=== PATIENT | female | born 1990 | race Caucasian/White ===

== ENCOUNTER 2019-05-28 20:07 | Inpatient (IN) | payer MEDICAID ==
[2019-05-29] MEDS ORDERED: Water For Irrigation,Sterile 1,000 ML Container IRR PRN (02:45)
[2019-05-29] MEDS ORDERED: Methylergonovine 0.2 MG/1 ML Amp IM PRN (02:45)
[2019-05-29] MEDS ORDERED: Oxytocin/0.9 % Sodium Chloride 30 UNIT/500 ML BAG IV SCH ×2 (02:45→09:15)
[2019-05-29] MEDS ORDERED: Butorphanol 1 MG/ML SDV IVPUSH PRN (02:45)
[2019-05-29] MEDS ORDERED: Ondansetron 4 MG/2 ML SDV IVPUSH PRN (02:45)
[2019-05-29] MEDS ORDERED: Sodium Chloride 0.9% 10 ML Syringe FLUSH PRN (02:45)
[2019-05-29] MEDS ORDERED: Sodium Chloride 0.9% 2.5 ML Syringe FLUSH PRN (02:45)
[2019-05-29] MEDS ORDERED: Misoprostol 200 MCG Tab PO PRN (02:45)
[2019-05-29] MEDS ORDERED: Lidocaine 1% 50 ML MDV INJECT PRN (02:45)
[2019-05-29] MEDS ORDERED: Carboprost Tromethamine 250 MCG/1 ML Amp IM PRN (02:45)
[2019-05-29] MEDS ORDERED: Nalbuphine 10 MG/1 ML Vial IVPUSH PRN (02:45)
[2019-05-29] MEDS ORDERED: Sodium Chloride 0.9% 10 ML SDV IV PRN (02:45)
[2019-05-29] MEDS ORDERED: Tranexamic Acid 1,000 MG in Sodium Chloride 0.9% 100 ML IV PRN ×2 (02:45→14:08)
[2019-05-29] MEDS ORDERED: Terbutaline 1 MG/ML SDV SUBCUT PRN (09:06)
[2019-05-29] MEDS ORDERED: fentaNYL 100 MCG/2 ML SDV ONE ×2 (09:35→11:54)
[2019-05-29] MEDS ORDERED: Ropivacaine HCl/PF 100 ML ONE (09:35)
[2019-05-29] MEDS: Lactated Ringers 1,000 ML IV SCH ×2 (09:39→10:13)
[2019-05-29] MEDS ORDERED: Acetaminophen 1,000 MG in Premix Bag 1 BAG IV ONE (10:08)
--- NOTE | 2019-05-29 10:13 | PCM.PREANE ---
Preanesthetic Assessment - Anesthesia/Transfusion/Family Hx Anesthesia History: Prior Anesthesia Without Reaction Family History of Anesthesia Reaction: No Transfusion History: No Prior Transfusion(s) Intubation History: Unknown - Review of Systems Neurological: Headache, Other - Physical Assessment NPO Status Date: 05/29/19 Vital Signs: Last Vital Signs Temp 36.8 C 05/29/19 08:02 Pulse Resp 20 05/29/19 08:02 BP Pulse Ox Height: 1.65 m Weight: 86.183 kg ASA Class: 1 Mental Status: Alert & Oriented x3 Dentition: Reports: Normal Dentition - Lab Values: Laboratory Last Values WBC 14.28 K/uL (4.0-11.0) H 05/29/19 03:00 RBC 3.82 M/uL (4.30-5.90) L 05/29/19 03:00 Hgb 11.7 g/dL (12.0-16.0) L 05/29/19 03:00 Hct 34.3 % (36.0-46.0) L 05/29/19 03:00 MCV 89.8 fL (80.0-98.0) 05/29/19 03:00 MCH 30.6 pg (27.0-32.0) 05/29/19 03:00 MCHC 34.1 g/dL (31.0-37.0) 05/29/19 03:00 RDW Std Deviation 53.5 fl (28.0-62.0) 05/29/19 03:00 RDW Coeff of Lily 16 % (11.0-15.0) H 05/29/19 03:00 Plt Count 185 K/uL (150-400) 05/29/19 03:00 MPV 9.10 fL (7.40-12.00) 05/29/19 03:00 Nucleated RBC % 0.0 /100WBC 05/29/19 03:00 Nucleated RBCs # 0 K/uL 05/29/19 03:00 Membrane Rupture NEGATIVE 05/28/19 20:25 Blood Type A POSITIVE 05/29/19 03:00 Antibody Screen NEGATIVE 05/29/19 03:00 - Allergies Allergies/Adverse Reactions: Allergies Allergy/AdvReac Type Severity Reaction Status Date / Time No Known Allergies Allergy Verified 05/28/19 20:17 - Acknowledgements Anesthesia Type Planned: Epidural Pt an Appropriate Candidate for the Planned Anesthesia: Yes Alternatives and Risks of Anesthesia Discussed w Pt/Guardian: Yes Pt/Guardian Understands and Agrees with Anesthesia Plan: Yes Additional Comments: Home [place] This patient has a history of frequent frontal migraine headaches, with photosensitivity to light. Patient reports taking imitrex or 1000 mg oral motrin for management of these headaches, She reports having a migraine headache today. She also reports a history of rapid heart beat. which will have a more complete evaluation of tachycardia after delivery. 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: Other OB/BYN History: Pt is 34 weeks Musculoskeletal History: Reports: Neck Pain, Chronic Other Musculoskeletal History: hx of KAMILLA's Neurological History: Reports: Migraines Psychiatric History: Reports: Anxiety Endocrine/Metabolic History: Reports: Hypothyroidism Hematologic History: Reports: None Immunologic History: Reports: None Oncologic (Cancer) History: Reports: None Dermatologic History: Reports: Eczema - Infectious Disease History Infectious Disease History: Reports: Chicken Pox, Influenza - Past Surgical History Head Surgeries/Procedures: Reports: None HEENT Surgical History: Reports: Other (See Below) Other HEENT Surgeries/Procedures: wisdom teeth extraction and root canals GI Surgical History: Reports: Appendectomy Female Surgical History: Reports: D&C Other Female Surgeries/Procedures: retained placenta Dermatological Surgical History: Reports: None - History Comment History Comment: etoh "1x a week". When she is NOT . - SUBSTANCE USE Smoking Status *Q: Former Smoker Tobacco Use Within Last Twelve Months: No Second Hand Smoke Exposure: No Recreational Drug Use History: No - HOME MEDS Home Medications: Home Meds Lansoprazole 15 mg PO DAILY 04/22/18 [History] Thyroid,Pork [[place] Thyroid] 90 mg PO 05/28/19 [History] valACYclovir [Valtrex] 1,000 mg PO 05/28/19 [History] - CURRENT (IN HOUSE) MEDS Current Meds: Current Medications Butorphanol Tartrate (Stadol) 1 mg IVPUSH Q1H PRN PRN Reason: Pain Carboprost Tromethamine (Hemabate Ds) 250 mcg IM ASDIRECTED PRN PRN Reason: Post Hemorrhage Lactated Ringer's (Ringers, Lactated) 1,000 mls @ 150 mls/hr IV ASDIRECTED PROSPER Last Admin: 05/29/19 09:39 Dose: 999 mls/hr Oxytocin/Sodium Chloride (Oxytocin 30 Unit/500 Ml-Ns) 30 unit in 500 mls @ 500 mls/hr IV TITRATE PROSPER Tranexamic Acid 1,000 mg/ (Sodium Chloride) 110 mls @ 660 mls/hr IV ONETIME PRN PRN Reason: Bleeding Oxytocin/Sodium Chloride (Oxytocin 30 Unit/500 Ml-Ns) 30 unit in 500 mls @ 2 mls/hr IV TITRATE PROSPER; Protocol Lidocaine HCl (Xylocaine 1%) 50 ml INJECT ONETIME PRN PRN Reason: Laceration repair Methylergonovine Maleate (Methergine) 0.2 mg IM ASDIRECTED PRN PRN Reason: Post Hemorrhage Misoprostol (Cytotec) 200 mcg PO ONETIME PRN PRN Reason: Post Hemorrhage Nalbuphine HCl (Nubain) 10 mg IVPUSH Q1H PRN PRN Reason: Pain (severe 7-10) Ondansetron HCl (Zofran) 4 mg IVPUSH Q4H PRN PRN Reason: Nausea/Vomiting Sodium Chloride (Saline Flush) 10 ml FLUSH ASDIRECTED PRN PRN Reason: Keep Vein Open Sodium Chloride (Saline Flush) 2.5 ml FLUSH ASDIRECTED PRN PRN Reason: Keep Vein Open Sodium Chloride (Normal Saline) 10 ml IV ASDIRECTED PRN PRN Reason: IV Use Sterile Water (Sterile Water For Irrigation) 1,000 ml IRR ASDIRECTED PRN PRN Reason: delivery Terbutaline Sulfate (Brethine) 0.25 mg SUBCUT ASDIRECTED PRN PRN Reason: Tacysystole Discontinued Medications Fentanyl (Sublimaze) Confirm Administered Dose 100 mcg .ROUTE .ST[place]abb[place]et-MED ONE Stop: 05/29/19 09:36 Ropivacaine (Naropin 0.2%) Confirm Administered Dose 100 mls @ as directed .ROUTE .STSnabboteket-MED ONE Stop: 05/29/19 09:36
--- NOTE | 2019-05-29 10:20 | PCM.PRNOTE ---
- Free Text/Narrative Note: Anes Note Patient requests epidural for L&D. Sitting position. Level L2-L3. Midline approach. Sterile technique. Chloraprep scrub to lumbar area. Sterile fenestrated drape applied. Epidural space easily achieved ad 4 cm. Small amount clear fluid noted. This may be CSF or the local infiltrate. HOwever, I attempted another approach at L3-L4, midlinw approach. SALOMÓN at 4 cm. Catheter threaded to 9 cm with ease. Sterile adhesive dressing applied. Ilya well. 1000 Heart rate note to be 110-120 prior to and during test dose. An EKG was applid, and a regular sinus tach was noted. Patient reports this is a typical episode of tachycardia with mild anxiety and dizzines. 1005 Loading dose 10cc 0.2 ropivicaine with 1 mcg cc fentanyl in slow divided doses. No change in vitals signs, slow improvement in labor discomfort. 1010 Infusion started with same solution at 8 cc hr with 6 cc q 20 min prn bolus. Time with patient [id number] Ellis Lomeli CRNA
--- NOTE | 2019-05-29 12:09 | PCM.PRNOTE ---
- Free Text/Narrative Note: Anes Note 1155 Patient reports diminished analgesia with epidural infusion. Patient did not understand there was a HAND COREMAKER button for epidural available, and has not used this since epidural placement. I have redosed epidural with 2 cc fentanyl plus 5 cc 2% lidocaine with epi in slow divided doses. Patient reports mild sensory changes in legs and perineal area after dosing. Time with patient [id number] Ellis Lomeli CRNA
[2019-05-29] MEDS ORDERED: valACYclovir 500 MG Tab PO SCH (13:00)
--- NOTE | 2019-05-29 14:06 | PCM.DEL ---
L & D Note - General Info Date of Service: 05/29/19 Mother's Due Date: 06/03/19 - Delivery Note Labor: Spontaneous, Augmented by Oxytocin Delivery Outcome: Livebirth Infant Delivery Method: Spontaneous Vaginal Delivery-Single Presentation: Left Occiput Anterior (KEYUR) Nuchal Cord: Reduced Prep: Other Anesthesia Type: Epidural Amniotic Fluid Description: Clear Episiotomy Type: None Laceration: None Placenta: Intact, Spontaneous Cord: 3 Vessels Estimated Blood Loss: 200 Resuscitation Needed: Yes : Bulb Syringe Score 1 min: 8 Score 5 min: 8 Delivery Comments (Free Text/Narrative):: liveborn male - General Info Date of Service: 05/29/19 - Patient Data Vitals - Most Recent: Last Vital Signs Temp 36.8 C 05/29/19 08:02 Pulse Resp 20 05/29/19 08:02 BP Pulse Ox Weight - Most Recent: 86.183 kg Lab Results Last 24 Hours: Laboratory Results - last 24 hr 05/28/19 05/29/19 05/29/19 Range/Units 20:25 03:00 03:00 WBC 14.28 H (4.0-11.0) K/uL RBC 3.82 L (4.30-5.90) M/uL Hgb 11.7 L (12.0-16.0) g/dL Hct 34.3 L (36.0-46.0) % MCV 89.8 (80.0-98.0) fL MCH 30.6 (27.0-32.0) pg MCHC 34.1 (31.0-37.0) g/dL RDW Std Deviation 53.5 (28.0-62.0) fl RDW Coeff of Lily 16 H (11.0-15.0) % Plt Count 185 (150-400) K/uL MPV 9.10 (7.40-12.00) fL Nucleated RBC % 0.0 /100WBC Nucleated RBCs # 0 K/uL Membrane Rupture NEGATIVE Blood Type A POSITIVE Antibody Screen NEGATIVE Med Orders - Current: Current Medications Butorphanol Tartrate (Stadol) 1 mg IVPUSH Q1H PRN PRN Reason: Pain Carboprost Tromethamine (Hemabate Ds) 250 mcg IM ASDIRECTED PRN PRN Reason: Post Hemorrhage Lactated Ringer's (Ringers, Lactated) 1,000 mls @ 150 mls/hr IV ASDIRECTED [facility] Last Admin: 05/29/19 10:13 Dose: 150 mls/hr Oxytocin/Sodium Chloride (Oxytocin 30 Unit/500 Ml-Ns) 30 unit in 500 mls @ 500 mls/hr IV TITRATE PROSPER Tranexamic Acid 1,000 mg/ (Sodium Chloride) 110 mls @ 660 mls/hr IV ONETIME PRN PRN Reason: Bleeding Oxytocin/Sodium Chloride (Oxytocin 30 Unit/500 Ml-Ns) 30 unit in 500 mls @ 2 mls/hr IV TITRATE PROSPER; Protocol Last Titration: 05/29/19 12:44 Dose: 10 munits/min, 10 mls/hr Lidocaine HCl (Xylocaine 1%) 50 ml INJECT ONETIME PRN PRN Reason: Laceration repair Methylergonovine Maleate (Methergine) 0.2 mg IM ASDIRECTED PRN PRN Reason: Post Hemorrhage Misoprostol (Cytotec) 200 mcg PO ONETIME PRN PRN Reason: Post Hemorrhage Nalbuphine HCl (Nubain) 10 mg IVPUSH Q1H PRN PRN Reason: Pain (severe 7-10) Ondansetron HCl (Zofran) 4 mg IVPUSH Q4H PRN PRN Reason: Nausea/Vomiting Sodium Chloride (Saline Flush) 10 ml FLUSH ASDIRECTED PRN PRN Reason: Keep Vein Open Sodium Chloride (Saline Flush) 2.5 ml FLUSH ASDIRECTED PRN PRN Reason: Keep Vein Open Sodium Chloride (Normal Saline) 10 ml IV ASDIRECTED PRN PRN Reason: IV Use Sterile Water (Sterile Water For Irrigation) 1,000 ml IRR ASDIRECTED PRN PRN Reason: delivery Terbutaline Sulfate (Brethine) 0.25 mg SUBCUT ASDIRECTED PRN PRN Reason: Tacysystole Valacyclovir HCl (Valtrex) 500 mg PO BID [facility] Discontinued Medications Fentanyl (Sublimaze) Confirm Administered Dose 100 mcg .ROUTE .STK-MED ONE Stop: 05/29/19 09:36 Fentanyl (Sublimaze) Confirm Administered Dose 100 mcg .ROUTE .STK-MED ONE Stop: 05/29/19 11:55 Ropivacaine (Naropin 0.2%) Confirm Administered Dose 100 mls @ as directed .ROUTE .STK-MED ONE Stop: 05/29/19 09:36 Acetaminophen 1,000 mg/ Premix 100 mls @ 400 mls/hr IV NOW ONE Stop: 05/29/19 10:22 Last Admin: 05/29/19 10:26 Dose: 400 mls/hr - Problem List Review Problem List Initiated/Reviewed/Updated: Yes - My Orders Last 24 Hours: My Active Orders 05/28/19 20:19 Patient Status [ADT] Routine Non Stress Test [RC] PER UNIT ROUTINE Up ad Evi [RC] ASDIRECTED Vaginal Exam [RC] Click to Edit Vital Signs [RC] PER UNIT ROUTINE Resuscitation Status Routine 05/29/19 02:45 Patient Status [ADT] Routine May Shower [RC] ASDIRECTED Notify Provider [RC] PRN Up ad Evi [RC] ASDIRECTED Butorphanol [Stadol] 1 mg IVPUSH Q1H PRN Carboprost Tromethamine [Hemabate DS] 250 mcg IM ASDIRECTED PRN Lactated Ringers [Ringers, Lactated] 1,000 ml IV ASDIRECTED Lidocaine 1% [Xylocaine 1%] 50 ml INJECT ONETIME PRN Methylergonovine [Methergine] 0.2 mg IM ASDIRECTED PRN Nalbuphine [Nubain] 10 mg IVPUSH Q1H PRN Ondansetron [Zofran] 4 mg IVPUSH Q4H PRN Oxytocin/0.9 % Sodium Chloride [Oxytocin 30 Unit/500 ML-NS] 30 unit in 500 ml IV TITRATE Sodium Chloride 0.9% [Normal Saline] 10 ml IV ASDIRECTED PRN Sodium Chloride 0.9% [Saline Flush] 10 ml FLUSH ASDIRECTED PRN Sodium Chloride 0.9% [Saline Flush] 2.5 ml FLUSH ASDIRECTED PRN Tranexamic Acid [Cyklokapron] 1,000 mg Sodium Chloride 0.9% [Normal Saline] 100 ml IV ONETIME Water For Irrigation,Sterile [Sterile Water for Irrigation] 1,000 ml IRR ASDIRECTED PRN miSOPROStol [Cytotec] 200 mcg PO ONETIME PRN Scalp Electrode [WOMSER] Per Unit Routine Peripheral IV Insertion Adult [OM.PC] Routine 05/29/19 09:06 Bedrest Bathroom Privileges [RC] ASDIRECTED Notify Provider [RC] PRN Notify Provider [RC] STAT Vaginal Exam [RC] PRN Vital Signs [RC] PER UNIT ROUTINE Terbutaline [Brethine] 0.25 mg SUBCUT ASDIRECTED PRN 05/29/19 09:15 Oxytocin/0.9 % Sodium Chloride [Oxytocin 30 Unit/500 ML-NS] 30 unit in 500 ml IV TITRATE 05/29/19 13:00 valACYclovir [Valtrex] 500 mg PO BID 05/29/19 Breakfast Clear Liquid Diet [DIET] - Assessment Assessment:: vaginal delivery
[2019-05-29] MEDS ORDERED: Acetaminophen 500 MG Tab PO PRN ×2 (14:08)
[2019-05-29] MEDS ORDERED: oxyCODONE 5 MG Tab PO PRN (14:08)
[2019-05-29] MEDS ORDERED: Benzocaine/Menthol 20%-0.5% Spray 78 GM Cannister TOP PRN (14:08)
[2019-05-29] MEDS ORDERED: Lanolin 100% Cream 7 GM Tube TOP PRN (14:08)
[2019-05-29] MEDS ORDERED: Bisacodyl 10 MG Supp RECTAL PRN (14:08)
[2019-05-29] MEDS ORDERED: Witch Hazel Medicated Pads 40/Jar TOP PRN (14:08)
[2019-05-29] MEDS ORDERED: Docusate Sodium 100 MG Cap PO PRN (14:08)
[2019-05-29] MEDS: Ibuprofen 800 MG Tab PO PRN (14:22)
--- NOTE | 2019-05-29 17:26 | OR ---
SURGEON: Migdalia Zuleta M.D. DATE OF PROCEDURE: 05/29/2019 PREOPERATIVE DIAGNOSIS: A 39 and 3/7 weeks' intrauterine , active spontaneous labor with augmentation. POSTOPERATIVE DIAGNOSIS: A 39 and 3/7 weeks' intrauterine , active spontaneous labor with augmentation. PROCEDURE: Pitocin augmentation of labor, term spontaneous vaginal delivery. ANESTHESIA: Epidural. ESTIMATED BLOOD LOSS: Less than 400 mL. FINDINGS: Liveborn male, score 8 and 8, weighing 3690 g. Placenta spontaneous, Schultze, intact with 3 vessels. Perineum intact. COMPLICATIONS: None known. DISPOSITION: Mother and baby are stable in LDR. BRIEF HISTORY: This is a 28-year-old female. She is G5, P3-0-1-3, presents at 39 and 2/7 weeks' gestation with regular contractions. She did change from 2 to 3 cm to 4+ cm, 80% effaced with slow cervical change beyond this. She [place] live out of town. She is greater than 39 weeks, therefore, she was offered artificial rupture of membranes with Pitocin augmentation if needed. She does desire to proceed with artificial rupture of membranes; however, after 4 hours, she had minimal further cervical change, and therefore, Pitocin was initiated. She has a history of herpes in the remote past. She has been on Valtrex b.i.d. and late exam was negative, and she denied any symptoms. She had category 1 heart tones and she progressed to complete. DESCRIPTION OF PROCEDURE: With the patient in dorsal lithotomy position, the patient pushed over 2 contractions to a 5+ station at which time, the head was delivered spontaneously and atraumatically over the perineum with support with subsequent delivery of the infant's shoulders and body without any difficulty. The infant was bulb suctioned by nose and mouth and the cord was clamped x2 after it ceased to pulsate, and the was handed to the mother in the presence of nurse attending delivery. The was a liveborn male, score 8 and 8, weighing 3690 g. Cord blood was collected for cord ABGs as well as routine cord blood sampling. Pitocin was initiated after delivery of the infant to assist with delivery of the placenta, which was delivered spontaneously, Schultze, intact with 3 vessels. Upon inspection the pelvis and perineum, there were no periurethral, vaginal sidewall, cervical, rectal, or perineal lacerations. EBL was less than 400 mL. Mother and baby are in LDR in good condition. JAYCE / TIFFANIE /[id number]
[2019-05-29] MEDS: Ibuprofen 400 MG Tab PO PRN ×2 (18:37→23:11)
[2019-05-30] MEDS: Ibuprofen 800 MG Tab PO PRN (06:06)
--- NOTE | 2019-05-30 06:47 | PCM.POSTAN ---
POST ANESTHESIA ASSESSMENT - MENTAL STATUS Mental Status: Alert - VITAL SIGNS Vital Signs: Last Vital Signs Temp 36.5 C 05/30/19 04:29 Pulse 68 05/30/19 04:29 Resp 20 05/30/19 04:29 BP Pulse Ox 98 05/30/19 04:29 - RESPIRATORY Respiratory Status: Respiratory Rate WNL - CARDIOVASCULAR CV Status: Pulse Rate WNL - GASTROINTESTINAL GI Status: No Symptoms - POST OP HYDRATION Hydration Status: Adequate & Stable (Hattie reports continued frontal headache which is consistent with her history of migraine headaches)
--- NOTE | 2019-05-30 06:50 | PCM48HPAN ---
Post Anesthesia Note - EVALUATION WITHIN 48HRS OF ANESTHETIC Vital Signs in Normal Range: Yes Patient Participated in Evaluation: Yes Respiratory Function Stable: Yes Airway Patent: Yes Cardiovascular Function Stable: Yes Hydration Status Stable: Yes Pain Control Satisfactory: Yes Nausea and Vomiting Control Satisfactory: Yes Mental Status Recovered: Yes Vital Signs: Last Vital Signs Temp 36.5 C 05/30/19 04:29 Pulse 68 05/30/19 04:29 Resp 20 05/30/19 04:29 BP Pulse Ox 98 05/30/19 04:29 - COMMENTS/OBSERVATIONS Free Text/Narrative:: Anes Note Continues to report a frontal headache which is consistent with her prep op migraine headache symptoms. There is no headache in neck or back of head. This headache does not resolve when laying flat. Impression: Continued Migraine Headache. Ellis Lomeli BARBER STYLIST
[2019-05-30] MEDS ORDERED: Acetaminophen 1,000 MG in Premix Bag 1 BAG IV PRN (07:41)
--- NOTE | 2019-05-30 08:22 | PCM.PNPP ---
- General Info Date of Service: 05/30/19 Functional Status: Reports: Pain Controlled (has headache, somewhat positional, has been evaluated by anesthesia, they do not feel it is from epidural. ), Tolerating Diet, Ambulating, Urinating - Review of Systems General: Reports: No Symptoms HEENT: Reports: No Symptoms Pulmonary: Reports: No Symptoms Cardiovascular: Reports: No Symptoms Gastrointestinal: Reports: No Symptoms Genitourinary: Reports: No Symptoms Musculoskeletal: Reports: No Symptoms Skin: Reports: No Symptoms Neurological: Reports: No Symptoms Psychiatric: Reports: No Symptoms - General Info Date of Service: 05/30/19 - Patient Data Vital Signs - Most Recent: Last Vital Signs Temp 36.5 C 05/30/19 04:29 Pulse 68 05/30/19 04:29 Resp 20 05/30/19 04:29 BP Pulse Ox 98 05/30/19 04:29 Weight - Most Recent: 86.183 kg Lab Results - Last 24 Hours: Laboratory Results - last 24 hr 05/29/19 05/30/19 Range/Units 13:58 06:18 Hgb 10.5 L (12.0-16.0) g/dL Hct 31.1 L (36.0-46.0) % Cord ABG pH 7.250 (7.18-7.38) Cord ABG Base Excess -3 (-10--2) Cord VBG pH 7.356 (7.25-7.45) Cord VBG Base Excess -4 (-10--2) Med Orders - Current: Current Medications Acetaminophen (Tylenol Extra Strength) 500 mg PO Q4H PRN PRN Reason: Pain Last Admin: 05/29/19 21:34 Dose: 500 mg Acetaminophen (Tylenol Extra Strength) 1,000 mg PO Q4H PRN PRN Reason: Pain Last Admin: 05/29/19 17:21 Dose: 1,000 mg Benzocaine/Menthol (Dermoplast Pain Relief 20%-0.5% [place]) 78 gm TOP ASDIRECTED PRN PRN Reason: Perineal Comfort Measure Bisacodyl (Dulcolax) 10 mg RECTAL ONETIME PRN PRN Reason: Constipation Docusate Sodium (Colace) 100 mg PO BID PRN PRN Reason: Constipation Emollient Ointment (Lansinoh Hpa) 0 gm TOP ASDIRECTED PRN PRN Reason: Sore Nipples Tranexamic Acid 1,000 mg/ (Sodium Chloride) 110 mls @ 660 mls/hr IV ONETIME PRN PRN Reason: Bleeding Acetaminophen 1,000 mg/ Premix 100 mls @ 400 mls/hr IV Q6H PRN PRN Reason: Pain Ibuprofen (Motrin) 400 mg PO Q4H PRN PRN Reason: Pain Last Admin: 05/29/19 23:11 Dose: 400 mg Ibuprofen (Motrin) 800 mg PO Q6H PRN PRN Reason: Pain Last Admin: 05/30/19 06:06 Dose: 800 mg Oxycodone HCl (Oxycodone) 5 mg PO Q2H PRN PRN Reason: Pain Last Admin: 05/29/19 18:30 Dose: 5 mg Witch Beth (Tucks) 1 pad TOP ASDIRECTED PRN PRN Reason: comfort care Discontinued Medications Butorphanol Tartrate (Stadol) 1 mg IVPUSH Q1H PRN PRN Reason: Pain Carboprost Tromethamine (Hemabate Ds) 250 mcg IM ASDIRECTED PRN PRN Reason: Post Hemorrhage Fentanyl (Sublimaze) Confirm Administered Dose 100 mcg .ROUTE .STK-MED ONE Stop: 05/29/19 09:36 Fentanyl (Sublimaze) Confirm Administered Dose 100 mcg .ROUTE .STK-MED ONE Stop: 05/29/19 11:55 Lactated Ringer's (Ringers, Lactated) 1,000 mls @ 150 mls/hr IV ASDIRECTED PROSPER Last Admin: 05/29/19 10:13 Dose: 150 mls/hr Oxytocin/Sodium Chloride (Oxytocin 30 Unit/500 Ml-Ns) 30 unit in 500 mls @ 500 mls/hr IV TITRATE PROSPER Tranexamic Acid 1,000 mg/ (Sodium Chloride) 110 mls @ 660 mls/hr IV ONETIME PRN PRN Reason: Bleeding Oxytocin/Sodium Chloride (Oxytocin 30 Unit/500 Ml-Ns) 30 unit in 500 mls @ 2 mls/hr IV TITRATE PROSPER; Protocol Last Titration: 05/29/19 12:44 Dose: 10 munits/min, 10 mls/hr Ropivacaine (Naropin 0.2%) Confirm Administered Dose 100 mls @ as directed .ROUTE .STK-MED ONE Stop: 05/29/19 09:36 Acetaminophen 1,000 mg/ Premix 100 mls @ 400 mls/hr IV NOW ONE Stop: 05/29/19 10:22 Last Admin: 05/29/19 10:26 Dose: 400 mls/hr Lidocaine HCl (Xylocaine 1%) 50 ml INJECT ONETIME PRN PRN Reason: Laceration repair Methylergonovine Maleate (Methergine) 0.2 mg IM ASDIRECTED PRN PRN Reason: Post Hemorrhage Misoprostol (Cytotec) 200 mcg PO ONETIME PRN PRN Reason: Post Hemorrhage Nalbuphine HCl (Nubain) 10 mg IVPUSH Q1H PRN PRN Reason: Pain (severe 7-10) Ondansetron HCl (Zofran) 4 mg IVPUSH Q4H PRN PRN Reason: Nausea/Vomiting Sodium Chloride (Saline Flush) 10 ml FLUSH ASDIRECTED PRN PRN Reason: Keep Vein Open Sodium Chloride (Saline Flush) 2.5 ml FLUSH ASDIRECTED PRN PRN Reason: Keep Vein Open Sodium Chloride (Normal Saline) 10 ml IV ASDIRECTED PRN PRN Reason: IV Use Sterile Water (Sterile Water For Irrigation) 1,000 ml IRR ASDIRECTED PRN PRN Reason: delivery Last Admin: 05/29/19 13:45 Dose: 1,000 ml Terbutaline Sulfate (Brethine) 0.25 mg SUBCUT ASDIRECTED PRN PRN Reason: Tacysystole Valacyclovir HCl (Valtrex) 500 mg PO BID PROSPER - Infant Interaction Disposition, : in Room with Family Infant Interaction: Holding Infant Feeding: Breastfed ; Nursed Well Support Person: - Recovery Exam Fundal Tone: Firm Fundal Level: 2 Fingerbreadths Below Umbilicus Fundal Placement: Midline Lochia Amount: Small Lochia Color: Rubra/Red Perineum Description: Intact, Minimal Bruising/Swelling Episiotomy/Laceration: None Bladder Status: Voiding Urinary Elimination: Voided - Exam General: Alert, Oriented HEENT: Pupils Equal Neck: Supple Lungs: Normal Respiratory Effort GI/Abdominal Exam: Soft, Non-Tender, No Organomegaly, No Distention, Pelvis Stable Extremities: Normal Inspection, Non-Tender, No Pedal Edema Skin: Warm, Dry, Intact Neurological: No New Focal Deficit Psy/Mental Status: Alert, Normal Affect, Normal Mood - Problem List Review Problem List Initiated/Reviewed/Updated: Yes - My Orders Last 24 Hours: My Active Orders 05/29/19 09:06 Bedrest Bathroom Privileges [RC] ASDIRECTED Vaginal Exam [RC] PRN Vital Signs [RC] PER UNIT ROUTINE 05/29/19 14:08 Patient Status [ADT] Routine May Shower [RC] ASDIRECTED Up ad Evi [RC] ASDIRECTED Vital Signs [RC] PER UNIT ROUTINE Acetaminophen [Tylenol Extra Strength] 1,000 mg PO Q4H PRN Acetaminophen [Tylenol Extra Strength] 500 mg PO Q4H PRN Benzocaine/Menthol [Dermoplast Pain Relief 20%-0.5% [place]] 78 gm TOP ASDIRECTED PRN Bisacodyl [Dulcolax] 10 mg RECTAL ONETIME PRN Docusate Sodium [Colace] 100 mg PO BID PRN Ibuprofen [Motrin] 400 mg PO Q4H PRN Ibuprofen [Motrin] 800 mg PO Q6H PRN Lanolin [Lansinoh HPA] See Dose Instructions TOP ASDIRECTED PRN Tranexamic Acid [Cyklokapron] 1,000 mg Sodium Chloride 0.9% [Normal Saline] 100 ml IV ONETIME Witch Beth [Tucks] 1 pad TOP ASDIRECTED PRN oxyCODONE 5 mg PO Q2H PRN Assess Lochia [WOMSER] Per Unit Routine Assess Uterine Involution [WOMSER] Per Unit Routine Perineal Care [OM.PC] Per Unit Routine Peripheral IV Discontinue [OM.PC] Routine Resuscitation Status Routine 05/29/19 Lunch Regular Diet [DIET] - Assessment Assessment:: PPD#1 after , stable, minimal lochia, normal BP. Discussed options for headache. She is currently receiving IV Tylenol. Offered staying another day in case head is worse or unresolved. She feels that she would like to go home and then she can do her own interventions there. - Plan Plan:: Dismiss to home, precautions reviewed.
[2019-05-30] MEDS ORDERED: Ketorolac 30 MG/ML SDV IVPUSH ONE (08:42)
[2019-05-30 09:43] VITALS: BP 116/69
== END 2019-05-30 16:15 | disposition home or self-care (01) | DRG 807 ==
LOC: MW.OBCHECK 20:07 → MW.OB 20:07 → MW.OBCHECK 05-29 02:45 → OBSVTOIN 05-29 13:50 → MW.OB 05-29 16:30
PROVIDERS: ADMIT Obstetrics & Gynecology; ATTEND Obstetrics & Gynecology
PROC: 10E0XZZ Delivery of Products of Conception, External Approach (ICD-10-PCS; principal; 2019-05-29)
PROC: 10907ZC Drainage of Amniotic Fluid, Therapeutic from Products of Conception, Via Natural or Artificial Opening (ICD-10-PCS; 2019-05-29)
PROC: 10H07YZ Insertion of Other Device into Products of Conception, Via Natural or Artificial Opening (ICD-10-PCS; 2019-05-29)
PROC: 3E0S3BZ Introduction of Anesthetic Agent into Epidural Space, Percutaneous Approach (ICD-10-PCS; 2019-05-29)
PROC: 00HU33Z Insertion of Infusion Device into Spinal Canal, Percutaneous Approach (ICD-10-PCS; 2019-05-29)
DX: O99.354 Diseases of the nervous system complicating childbirth (principal); Z37.0 Single live birth; G43.909 Migraine, unspecified, not intractable, without status migrainosus; Z3A.39 39 weeks gestation of pregnancy
CPT/HCPCS: 01967; 36415; 51702; 59025; 59409; 82803; 84112; 85014; 85018; 85027; 86850; 86900; 86901; A9270-GY; J0131; J1885; J2001; J2590; J2795; J3010; J7120

== ENCOUNTER 2019-06-01 17:04 | Observation (INO) | payer MEDICAID ==
--- NOTE | 2019-06-01 17:12 | EDM.PDOC ---
ED HPI GENERAL MEDICAL PROBLEM - General Chief Complaint: DESIGNATED BROKER Problem Stated Complaint: HEADACHE,BACK ACHE Time Seen by Provider: 06/01/19 17:12 Source of Information: Reports: Patient History Limitations: Reports: No Limitations - History of Present Illness INITIAL COMMENTS - FREE TEXT/NARRATIVE: HISTORY AND PHYSICAL: History of present illness: Patient is a 28-year-old female presents to the ED with complaint of headache. Patient is 3 days post vaginal delivery with epidural. She states she developed a headache instantly after epidural was placed. She reports it is better and almost resolves when she lies down and is worse with sitting or standing. She states it feels like a gripping pain in her neck and back of head and radiates to the top of her head. She has been taking tylenol and ibuprofen without relief. She denies worsening abdominal pain or bleeding and denies fevers or chills. Patient was seen in [place] ED and provider talked with Dr. Zuleta who recommended patient come to ED in [place] for a possible blood patch. Review of systems: As per history of present illness and below otherwise all systems reviewed and negative. Past medical history: As per history of present illness and as reviewed below otherwise noncontributory. Surgical history: As per history of present illness and as reviewed below otherwise noncontributory. Social history: No reported history of drug or alcohol abuse. Family history: As per history of present illness and as reviewed below otherwise noncontributory. Physical exam: General: Patient sitting comfortably in no acute distress and nontoxic appearing HEENT: Atraumatic, normocephalic, pupils reactive, negative for conjunctival pallor or scleral icterus, mucous membranes moist, throat clear, neck supple, nontender, trachea midline. No meningeal signs. Lungs: Clear to auscultation, breath sounds equal bilaterally, chest nontender. Heart: S1S2, regular, negative for clicks, rubs, or overt murmur. Abdomen: Soft, nondistended, nontender. Negative for masses or hepatosplenomegaly. Negative for costovertebral tenderness. No rigidity, rebound , guarding. Pelvis: Stable nontender. Genitourinary: Deferred. Rectal: Deferred. Extremities: Atraumatic, negative for cords or calf pain. Neurovascular unremarkable. Neuro: Awake, alert, oriented. Cranial nerves II through XII unremarkable. Cerebellum unremarkable. Motor and sensory unremarkable throughout. Exam nonfocal. Notes: Nigel Quinones CRNA to ED to do blood patch. Patient monitored for 1 hour post blood patch. Diagnostics: none Therapeutics: Prescriptions: Impression: headache s/p epidural Plan: Drink plenty of fluids as instructed Follow up with marketing admin Return to ED As needed as discussed Definitive disposition and diagnosis as appropriate pending reevaluation and review of above. headaceh Pain Score (Numeric/FACES): 10 - Related Data Allergies Allergy/AdvReac Type Severity Reaction Status Date / Time No Known Allergies Allergy Verified 06/01/19 17:10 Home Meds: Home Meds Thyroid,Pork [Seminary Thyroid] 90 mg PO 05/28/19 [History] Past Medical History HEENT History: Reports: None Cardiovascular History: Reports: None Respiratory History: Reports: Asthma Other Respiratory History: has not used inhaler for 2 years Gastrointestinal History: Reports: GERD Genitourinary History: Reports: UTI, Recurrent Other Genitourinary History: last UTI was 1 month ago DESIGNATED BROKER History: Reports: Other DESIGNATED BROKER History: Pt is 34 weeks Musculoskeletal History: Reports: Neck Pain, Chronic Other Musculoskeletal History: hx of KAMILLA's Neurological History: Reports: Migraines Psychiatric History: Reports: Anxiety Endocrine/Metabolic History: Reports: Hypothyroidism Hematologic History: Reports: None Immunologic History: Reports: None Oncologic (Cancer) History: Reports: None Dermatologic History: Reports: Eczema - Infectious Disease History Infectious Disease History: Reports: Chicken Pox, Influenza - Past Surgical History Head Surgeries/Procedures: Reports: None HEENT Surgical History: Reports: Other (See Below) Other HEENT Surgeries/Procedures: wisdom teeth extraction and root canals Cardiovascular Surgical History: Reports: None Respiratory Surgical History: Reports: None GI Surgical History: Reports: Appendectomy Female Surgical History: Reports: D&C Other Female Surgeries/Procedures: retained placenta Endocrine Surgical History: Reports: None Neurological Surgical History: Reports: None Musculoskeletal Surgical History: Reports: None Dermatological Surgical History: Reports: None - History Comment History Comment: etoh "1x a week". When she is NOT . Social & Family History - Family History Family Medical History: Noncontributory HEENT: Reports: Hearing Impairment Cardiac: Reports: Cardiomyopathy OBGYN: Reports: Fibroids, Endocrine/Metabolic: Reports: Hypothyroidism Hematologic: Reports: Anemia - Tobacco Use Smoking Status *Q: Never Smoker Second Hand Smoke Exposure: No - Caffeine Use Caffeine Use: Reports: Coffee, Soda - Recreational Drug Use Recreational Drug Use: No ED ROS GENERAL - Review of Systems Review Of Systems: ROS reveals no pertinent complaints other than HPI. ED EXAM - Physical Exam Exam: See Below (see dictation) Course - Vital Signs Last Recorded V/S: Last Vital Signs Temp 97.2 F 06/01/19 17:08 Pulse 70 06/01/19 17:08 Resp 16 06/01/19 17:08 BP 119/71 06/01/19 17:08 Pulse Ox 97 06/01/19 17:08 - Orders/Labs/Meds Orders: Active Orders 24 hr Category Date Time Status Verify Patient Consent Obtain [RC] ASDIRECTED Care 06/01/19 17:33 Active Lactated Ringers [Ringers, Lactated] 1,000 ml Med 06/01/19 17:45 Active IV ASDIRECTED Sodium Chloride 0.9% [Normal Saline] Med 06/01/19 17:43 Active 10 ml IV ASDIRECTED PRN Sodium Chloride 0.9% [Saline Flush] Med 06/01/19 17:43 Active 10 ml FLUSH ASDIRECTED PRN Sodium Chloride 0.9% [Saline Flush] Med 06/01/19 17:43 Active 2.5 ml FLUSH ASDIRECTED PRN Medication Administration Instruction [OM.PC] Routine Oth 06/01/19 17:33 Ordered Peripheral IV Insertion Adult [OM.PC] Routine Oth 06/01/19 17:33 Ordered Medication Orders Lactated Ringer's (Ringers, Lactated) 1,000 mls @ 125 mls/hr IV ASDIRECTED PROSPER Last Admin: 06/01/19 18:13 Dose: 125 mls/hr Sodium Chloride (Saline Flush) 10 ml FLUSH ASDIRECTED PRN PRN Reason: Keep Vein Open Sodium Chloride (Saline Flush) 2.5 ml FLUSH ASDIRECTED PRN PRN Reason: Keep Vein Open Sodium Chloride (Normal Saline) 10 ml IV ASDIRECTED PRN PRN Reason: IV Use Labs: Laboratory Tests 06/01/19 Range/Units 17:57 WBC 12.19 H (4.0-11.0) K/uL RBC 3.92 L (4.30-5.90) M/uL Hgb 11.8 L (12.0-16.0) g/dL Hct 35.6 L (36.0-46.0) % MCV 90.8 (80.0-98.0) fL MCH 30.1 (27.0-32.0) pg MCHC 33.1 (31.0-37.0) g/dL RDW Std Deviation 54.4 (28.0-62.0) fl RDW Coeff of Lily 16 H (11.0-15.0) % Plt Count 215 (150-400) K/uL MPV 9.30 (7.40-12.00) fL Nucleated RBC % 0.0 /100WBC Nucleated RBCs # 0 K/uL Meds: Medications Generic Name Dose Route Start Last Admin Trade Name Freq PRN Reason Stop Dose Admin Lactated Ringer's 1,000 mls @ 125 mls/hr 06/01/19 17:45 06/01/19 18:13 Ringers, Lactated IV 125 mls/hr ASDIRECTED PROSPER Administration Sodium Chloride 10 ml 06/01/19 17:43 Saline Flush FLUSH ASDIRECTED PRN Keep Vein Open Sodium Chloride 2.5 ml 06/01/19 17:43 Saline Flush FLUSH ASDIRECTED PRN Keep Vein Open Sodium Chloride 10 ml 06/01/19 17:43 Normal Saline IV ASDIRECTED PRN IV Use Discontinued Medications Generic Name Dose Route Start Last Admin Trade Name Freq PRN Reason Stop Dose Admin Fentanyl Confirm 06/01/19 18:27 Sublimaze Administered 06/01/19 18:28 Dose 100 mcg .ROUTE .STK-MED ONE Fentanyl 50 mcg 06/01/19 18:32 06/01/19 18:33 Sublimaze IVPUSH 06/01/19 18:33 50 mcg NOW STA Administration Departure - Departure Time of Disposition: 19:11 Disposition: Home, Self-Care 01 Condition: Good Clinical Impression: Headache - Discharge Information Referrals: PCP,Unobtain [Primary Care Provider] - Forms: ED Department Discharge Additional Instructions: The following information is given to patients seen in the emergency department who are being discharged to home. This information is to outline your options for follow-up care. We provide all patients seen in our emergency department with a follow-up referral. The need for follow-up, as well as the timing and circumstances, are variable depending upon the specifics of your emergency department visit. If you don't have a primary care physician on staff, we will provide you with a referral. We always advise you to contact your personal physician following an emergency department visit to inform them of the circumstance of the visit and for follow-up with them and/or the need for any referrals to a consulting specialist. The emergency department will also refer you to a specialist when appropriate. This referral assures that you have the opportunity for follow-up care with a specialist. All of these measure are taken in an effort to provide you with optimal care, which includes your follow-up. Under all circumstances we always encourage you to contact your private physician who remains a resource for coordinating your care. When calling for follow-up care, please make the office aware that this follow-up is from your recent emergency room visit. If for any reason you are refused follow-up, please contact the [facility] Emergency Department at and asked to speak to the emergency department charge nurse. [facility] [address] [place] [id number] Drink plenty of fluids as instructed Follow up with marketing admin Return to ED As needed as discussed
[2019-06-01] MEDS ORDERED: Sodium Chloride 0.9% 10 ML SDV IV PRN (17:43)
[2019-06-01] MEDS ORDERED: Sodium Chloride 0.9% 10 ML Syringe FLUSH PRN (17:43)
[2019-06-01] MEDS ORDERED: Sodium Chloride 0.9% 2.5 ML Syringe FLUSH PRN (17:43)
[2019-06-01] MEDS ORDERED: Lactated Ringers 1,000 ML IV SCH (17:45)
--- NOTE | 2019-06-01 17:55 | PCM.SN ---
- Free Text/Narrative Note: Called by the ER to evaluate patient for possible post-dural puncture headache. One exam the patient is lying flat in a dark room. Patient states her headache is almost totally resolved when lying flat and range from a 6-10 pain perez while standing. Patient states she has significant photophobia as well. She describes the pain as a "gripping pain" while standing. Ellis Lomeli CRNA noted some clear fluid return at 4cm during placement. Patient also states she does not feel her epidural ever properly worked. I explained the etiology of a post-dural puncture headache and treatment options. At this time due to the severity of the patients pain we will proceed with epidural blood patch placement. The epidural blood patch placement as well as risks and benefits were explained and the patient wishes to proceed at this time. Procedure Note The patient was positioned left lateral, betadine prep x 3, sterile drape was placed. L4-5 interspace was palpated. 17g Tuohy needle was introduced until loss of resistance was appreciated. Then 20mL of blood was sterilely drawn from the patients Lt AC by Dr Loera and injected into the epidural space. Patient denied pain on injection and started feeling pressure at 18mL. Needle was withdrawn, bandage was placed and the patient was turned supine. Patient tolerated placement well. Currently, she is complaining of strong low back pressure. Fentanyl 50mcg IV was ordered for comfort. Patient will need to remain flat for 1 hour following blood patch. The patient and were instructed on reasons to return to the ER for further treatment and evaluation.
[2019-06-01] MEDS ORDERED: fentaNYL 100 MCG/2 ML SDV ONE (18:27)
[2019-06-01] MEDS ORDERED: fentaNYL 100 MCG/2 ML SDV IVPUSH STA (18:32)
[2019-06-01] MEDS ORDERED: fentaNYL 50 MCG/ML SDV IVPUSH ONE (19:17)
[2019-06-01] MEDS ORDERED: Sodium Chloride 0.9% 1,000 ML IV ONE (20:24)
[2019-06-01 20:46] LABS: BLOOD UREA NITROGEN,BUN 6 mg/dL (7.0-18.0); CHLORIDE,CL 109 mmol/L (98-107); GLUCOSE RANDOM 104 mg/dL (74-106); POTASSIUM,K 3.9 mmol/L (3.5-5.1); SODIUM,NA 143 mmol/L (136-145)
[2019-06-01] MEDS: Acetaminophen/Butalbital/Caffeine 325-50-40 MG Tab PO PRN (21:52)
[2019-06-01] MEDS ORDERED: Metoclopramide 10 MG/2 ML SDV IVPUSH ONE (21:52)
[2019-06-01] MEDS ORDERED: Magnesium Oxide 400 MG Tab PO ONE (21:53)
[2019-06-01] MEDS ORDERED: Morphine 10 MG/ML Syringe IVPUSH PRN (22:12)
[2019-06-01] MEDS: Sodium Chloride 0.9% 1,000 ML IV SCH (22:13)
--- NOTE | 2019-06-01 22:18 | PCM.HP.2 ---
H&P History of Present Illness - General Date of Service: 06/01/19 Admit Problem/Dx: Admission Diagnosis/Problem Admission Diagnosis/Problem Headache Source of Information: Patient - History of Present Illness Initial Comments - Free Text/Narative: 28yo P4014 PPD3 presented to the ER complaining of worsening headache since after delivery. She states that she has always had a history of migraine, however it was always relieved with tylenol or motrin. she states this new onset headache started immediately after epidural anaesthesia in labor, she also states after the epidural she had tachycardia which resolved. she states her headache is squeezing pressure and starts in the frontal part of the head, radiates to the side and also worse around the neck. she states that she has blurring of vision when the headache is at its greatest intensity. she tried tylenol at home which did not improve the headache. The ER doctor called anaesthesia who did a blood patch. this initally relieved the headache but the relief was shortlived and is now worse than previously. Headache is worse with movement of her head and standing up and is slightly relieved with lying down PMH: Headache , Depression , Hypothyroidism PSH: Nil Allergies: Nil FSH = non contributory Exam; General; in severe distress , holding her head Chest; CTA BL CVS: s1 s2 no murmurs Abdomen; NAD Reflexes: DTR 2+ in all limbs CBC: 12< 11.8/35> 215 Cr 0.5 VSS in chart A/P 28 yo P4014 PPD3 with severe headache possible postdural puncture headache vs other etiology Plan: IVF NS bolus then @ 166ml/hr Reglan q 8hrs Fiorcet 2 tabs q 4hrs IV morphine 6mg stat CTscan of head with and without contrast Abdominal binder Magnessium tab 800mg stat Spoke with Anaesthesia will wait on CT scan result Will contact Neurology if no improvement by AM headaceh Pain Score (Numeric/FACES): 10 - Related Data Allergies/Adverse Reactions: Allergies Allergy/AdvReac Type Severity Reaction Status Date / Time No Known Allergies Allergy Verified 06/01/19 17:10 Home Medications: Home Meds Thyroid,Pork [[place] Thyroid] 90 mg PO 05/28/19 [History] Past Medical History HEENT History: Reports: None Cardiovascular History: Reports: None Respiratory History: Reports: Asthma Other Respiratory History: has not used inhaler for 2 years Gastrointestinal History: Reports: GERD Genitourinary History: Reports: UTI, Recurrent Other Genitourinary History: last UTI was 1 month ago [employer] History: Reports: Other OB/BYN History: Pt is 34 weeks Musculoskeletal History: Reports: Neck Pain, Chronic Other Musculoskeletal History: hx of KAMILLA's Neurological History: Reports: Migraines Psychiatric History: Reports: Anxiety Endocrine/Metabolic History: Reports: Hypothyroidism Hematologic History: Reports: None Immunologic History: Reports: None Oncologic (Cancer) History: Reports: None Dermatologic History: Reports: Eczema - Infectious Disease History Infectious Disease History: Reports: Chicken Pox, Influenza - Past Surgical History Head Surgeries/Procedures: Reports: None HEENT Surgical History: Reports: Other (See Below) Other HEENT Surgeries/Procedures: wisdom teeth extraction and root canals Cardiovascular Surgical History: Reports: None Respiratory Surgical History: Reports: None GI Surgical History: Reports: Appendectomy Female Surgical History: Reports: D&C Other Female Surgeries/Procedures: retained placenta Endocrine Surgical History: Reports: None Neurological Surgical History: Reports: None Musculoskeletal Surgical History: Reports: None Dermatological Surgical History: Reports: None - History Comment History Comment: etoh "1x a week". When she is NOT . Social & Family History - Family History Family Medical History: Noncontributory HEENT: Reports: Hearing Impairment Cardiac: Reports: Cardiomyopathy OBGYN: Reports: Fibroids, Endocrine/Metabolic: Reports: Hypothyroidism Hematologic: Reports: Anemia - Tobacco Use Smoking Status *Q: Never Smoker Second Hand Smoke Exposure: No - Caffeine Use Caffeine Use: Reports: Coffee, Soda - Recreational Drug Use Recreational Drug Use: No H&P Review of Systems - Review of Systems: Review Of Systems: See Below General: Reports: Other (Headache ) Pulmonary: Reports: No Symptoms Cardiovascular: Reports: No Symptoms Gastrointestinal: Reports: Nausea Genitourinary: Reports: No Symptoms Musculoskeletal: Reports: No Symptoms Exam - Exam Exam: See Below - Vital Signs Vital Signs: Last Vital Signs Temp 36.2 C 06/01/19 17:08 Pulse 58 L 06/01/19 21:25 Resp 16 06/01/19 21:25 BP 125/78 06/01/19 21:25 Pulse Ox 97 06/01/19 21:25 Weight: 81.647 kg - Exam General: Alert HEENT: Conjunctiva Clear Neck: Supple Lungs: Clear to Auscultation Cardiovascular: Regular Rate, Regular Rhythm - Patient Data Lab Results Last 24 hrs: Laboratory Results - last 24 hr 06/01/19 06/01/19 Range/Units 17:57 17:57 WBC 12.19 H (4.0-11.0) K/uL RBC 3.92 L (4.30-5.90) M/uL Hgb 11.8 L (12.0-16.0) g/dL Hct 35.6 L (36.0-46.0) % MCV 90.8 (80.0-98.0) fL MCH 30.1 (27.0-32.0) pg MCHC 33.1 (31.0-37.0) g/dL RDW Std Deviation 54.4 (28.0-62.0) fl RDW Coeff of Lily 16 H (11.0-15.0) % Plt Count 215 (150-400) K/uL MPV 9.30 (7.40-12.00) fL Neutrophils % (Manual) 70 (48.0-80.0) % Lymphocytes % (Manual) 20 (16.0-40.0) % Monocytes % (Manual) 8 (0.0-15.0) % Eosinophils % (Manual) 2 (0.0-7.0) % Nucleated RBC % 0.0 /100WBC Absolute Seg Neuts 8.5 H (1.4-5.7) Lymphocytes # (Manual) 2.4 (0.6-2.4) Monocytes # (Manual) 1.0 H (0.0-0.8) Eosinophils # (Manual) 0.2 (0.0-0.7) Nucleated RBCs # 0 K/uL Sodium 143 (136-145) mmol/L Potassium 3.9 (3.5-5.1) mmol/L Chloride 109 H (98-107) mmol/L Carbon Dioxide 25.0 (21.0-32.0) mmol/L BUN 6 L (7.0-18.0) mg/dL Creatinine 0.5 L (0.6-1.0) mg/dL Est Cr Clr Drug Dosing 152.08 mL/min Estimated GFR (MDRD) > 60.0 ml/min Glucose 104 (74-106) mg/dL Calcium 9.0 (8.5-10.1) mg/dL Result Diagrams: 06/01/19 17:57 06/01/19 17:57 - Problem List (1) Headache SNOMED Code(s): 19593076 ICD Code: R51 - HEADACHE Status: Acute Current Visit: Yes Problem List Initiated/Reviewed/Updated: Yes Orders Last 24hrs: Active Orders 24 hr Category Date Time Status Patient Status [ADT] Stat ADT 06/01/19 20:24 Active Notify Provider Consults [RC] ASDIRECTED Care 06/01/19 20:29 Active Verify Patient Consent Obtain [RC] ASDIRECTED Care 06/01/19 17:33 Active Consult to Physician [CONS] Stat Cons 06/01/19 20:28 Active CTA Head W & W/O Contrast [Ang Head] [CT] Routine Exams 06/01/19 21:46 Ordered UA RFX EREN AND CULT IF INDIC [URIN] Stat Lab 06/01/19 20:19 Ordered Acetaminophen/Butalbital/Caff [Fioricet 325-50-40 MG] Med 06/01/19 21:42 Active 2 tab PO Q4H PRN Lactated Ringers [Ringers, Lactated] 1,000 ml Med 06/01/19 17:45 Active IV ASDIRECTED Sodium Chloride 0.9% [Normal Saline] Med 06/01/19 17:43 Active 10 ml IV ASDIRECTED PRN Sodium Chloride 0.9% [Normal Saline] 1,000 ml Med 06/01/19 20:24 Active IV STAT Sodium Chloride 0.9% [Saline Flush] Med 06/01/19 17:43 Active 10 ml FLUSH ASDIRECTED PRN Sodium Chloride 0.9% [Saline Flush] Med 06/01/19 17:43 Active 2.5 ml FLUSH ASDIRECTED PRN Medication Administration Instruction [OM.PC] Routine Oth 06/01/19 17:33 Ordered Peripheral IV Insertion Adult [OM.PC] Routine Oth 06/01/19 17:33 Ordered Medication Orders Acetaminophen/Butalbital/Caffeine (Fioricet 325-50-40 Mg) 2 tab PO Q4H PRN PRN Reason: Headache/Pain Lactated Ringer's (Ringers, Lactated) 1,000 mls @ 125 mls/hr IV ASDIRECTED PROSPER Last Admin: 06/01/19 18:13 Dose: 125 mls/hr Sodium Chloride (Normal Saline) 1,000 mls @ 125 mls/hr IV STAT ONE Stop: 06/02/19 04:23 Sodium Chloride (Saline Flush) 10 ml FLUSH ASDIRECTED PRN PRN Reason: Keep Vein Open Sodium Chloride (Saline Flush) 2.5 ml FLUSH ASDIRECTED PRN PRN Reason: Keep Vein Open Sodium Chloride (Normal Saline) 10 ml IV ASDIRECTED PRN PRN Reason: IV Use Assessment/Plan Comment:: See HPI
[2019-06-01] MEDS ORDERED: Iopamidol 755 MG/ML 500 ML Multipack Bottle IVPUSH STA (23:49)
--- NOTE | 2019-06-02 00:09 | CT ---
INDICATION: Post epidural headache x 3 days. Symptoms worsened after blood patch. CT HEAD WITHOUT CONTRAST TECHNIQUE: Multiple axial CT images were performed through the head without intravenous contrast administration. COMPARISON: No previous studies are currently available for comparison. FINDINGS: Moderate pneumocephalus is present, with numerous bubbles of gas within the basal cisterns, along the right side of the brainstem, in the quadrigeminal plate cisterns, in both sylvian fissures, in the anterior interhemispheric fissure, and within multiple sulci over the hemisphere convexities, greatest on the left. There is no mass effect or midline shift. No acute intracranial hemorrhage is identified. Ventricles are normal in size and configuration. Brain parenchyma appears normal with unremarkable jimenez-white differentiation. Osseous structures are within normal limits and no fractures are seen. Included portions of the paranasal sinuses and mastoid air cells are normally aerated. IMPRESSION: Moderate pneumocephalus as detailed above, with numerous gas bubbles within the subarachnoid space. This may be iatrogenic and related to the recent epidural anesthesia. NATHALY GALLEGOS MD [facility] Dictated by Ernie Gallegos MD @ 06/02/2019 12:05:55 AM Dictated by: Ernie Gallegos MD @ 06/02/2019 00:07:47 (Electronically Signed)
[2019-06-02] MEDS: Acetaminophen/Butalbital/Caffeine 325-50-40 MG Tab PO PRN ×3 (02:40→12:09)
[2019-06-02] MEDS: Ibuprofen 800 MG Tab PO PRN ×2 (02:40→10:02)
[2019-06-02] MEDS: Sodium Chloride 0.9% 1,000 ML IV SCH (07:42)
--- NOTE | 2019-06-02 07:58 | PCM.CONS ---
<Kinjal Alcantara - Last Filed: 06/02/19 07:51> H&P History of Present Illness - General Date of Service: 06/02/19 Admit Problem/Dx: Admission Diagnosis/Problem Admission Diagnosis/Problem Headache - History of Present Illness Initial Comments - Free Text/Narative: The patient is a 28 year old P1014, post day 4 who was admitted by OBGYN for severe headache. Medical team has been asked to consult. The patient delivered vaginally 4 days ago. She did have a epidural and noted that she had a headache almost immediately after that has been present for the last several days. She said the pain was in the front and it radiated to either side and around her neck. She said the pain was worse with sitting and standing , but she got relief when she was lying down. She had associated blurred vision, nausea, vomiting. Chest history of migraines that responded to over-the- counter medications. He is currently breast-feeding. She presented to the ER, where anesthesia placed a blood patch. She did not get any relief from this. She also received fentanyl with little relief. She was admitted to floor. Lab work showed slightly elevated white count and slight anemia likely related to recent delivery. Her electrolytes and kidney function were within normal limits. A CTA of the head was done that showed moderate pneumocephalus likely due to the recent epidural. Her [employer] started Fioricet, magnesium, oxygen and IV fluids. When evaluating the patient , this morning, she was currently pain-free. She had gotten up early and didn' t have increased pain while standing. Currently denies any fever, chills, chest pain, shortness of breath, abdominal pain or nausea, vomiting. headaceh Pain Score (Numeric/FACES): 10 - Related Data Allergies/Adverse Reactions: Allergies Allergy/AdvReac Type Severity Reaction Status Date / Time No Known Allergies Allergy Verified 06/01/19 17:10 Home Medications: Home Meds Thyroid,Pork [[place] Thyroid] 90 mg PO 05/28/19 [History] Past Medical History HEENT History: Reports: None Cardiovascular History: Reports: None Respiratory History: Reports: Asthma Other Respiratory History: has not used inhaler for 2 years Gastrointestinal History: Reports: GERD Genitourinary History: Reports: UTI, Recurrent Other Genitourinary History: last UTI was 1 month ago [employer] History: Reports: Other OB/BYN History: Pt is 34 weeks Musculoskeletal History: Reports: Neck Pain, Chronic Other Musculoskeletal History: hx of KAMILLA's Neurological History: Reports: Migraines Psychiatric History: Reports: Anxiety Endocrine/Metabolic History: Reports: Hypothyroidism Hematologic History: Reports: None Immunologic History: Reports: None Oncologic (Cancer) History: Reports: None Dermatologic History: Reports: Eczema - Infectious Disease History Infectious Disease History: Reports: Chicken Pox, Influenza - Past Surgical History Head Surgeries/Procedures: Reports: None HEENT Surgical History: Reports: Other (See Below) Other HEENT Surgeries/Procedures: wisdom teeth extraction and root canals Cardiovascular Surgical History: Reports: None Respiratory Surgical History: Reports: None GI Surgical History: Reports: Appendectomy Female Surgical History: Reports: D&C Other Female Surgeries/Procedures: retained placenta Endocrine Surgical History: Reports: None Neurological Surgical History: Reports: None Musculoskeletal Surgical History: Reports: None Dermatological Surgical History: Reports: None - History Comment History Comment: etoh "1x a week". When she is NOT . Social & Family History - Family History Family Medical History: Noncontributory HEENT: Reports: Hearing Impairment Cardiac: Reports: Cardiomyopathy OBGYN: Reports: Fibroids, Endocrine/Metabolic: Reports: Hypothyroidism Hematologic: Reports: Anemia - Tobacco Use Smoking Status *Q: Never Smoker Second Hand Smoke Exposure: No - Caffeine Use Caffeine Use: Reports: Coffee, Soda - Recreational Drug Use Recreational Drug Use: No H&P Review of Systems - Review of Systems: Review Of Systems: See Below General: Reports: No Symptoms HEENT: Reports: No Symptoms Pulmonary: Reports: No Symptoms Cardiovascular: Reports: No Symptoms Gastrointestinal: Reports: No Symptoms Genitourinary: Reports: No Symptoms Musculoskeletal: Reports: No Symptoms Skin: Reports: No Symptoms Psychiatric: Reports: No Symptoms Neurological: Reports: No Symptoms Hematologic/Lymphatic: Reports: No Symptoms Immunologic: Reports: No Symptoms Exam - Exam Exam: See Below - Vital Signs Vital Signs: Last Vital Signs Temp 98.2 F 06/02/19 07:10 Pulse 57 L 06/02/19 07:10 Resp 17 06/02/19 07:10 BP 110/64 06/02/19 07:10 Pulse Ox 100 06/02/19 07:10 Weight: 81.647 kg - Exam General: Alert, Oriented, Cooperative HEENT: Conjunctiva Clear, EACs Clear, Mucosa Moist & [place], Posterior Pharynx Clear, Pupils Equal, Pupils Reactive Neck: Supple, Trachea Midline Lungs: Clear to Auscultation, Normal Respiratory Effort Cardiovascular: Regular Rate, Regular Rhythm GI/Abdominal Exam: Normal Bowel Sounds, Soft, Non-Tender Extremities: No Pedal Edema Skin: Warm, Dry, Intact Neurological: Cranial Nerves Intact Neuro Extensive - Mental Status: Alert, Oriented x3 Psychiatric: Alert, Normal Affect, Normal Mood - Patient Data Lab Results Last 24 hrs: Laboratory Results - last 24 hr 06/01/19 06/01/19 Range/Units 17:57 17:57 WBC 12.19 H (4.0-11.0) K/uL RBC 3.92 L (4.30-5.90) M/uL Hgb 11.8 L (12.0-16.0) g/dL Hct 35.6 L (36.0-46.0) % MCV 90.8 (80.0-98.0) fL MCH 30.1 (27.0-32.0) pg MCHC 33.1 (31.0-37.0) g/dL RDW Std Deviation 54.4 (28.0-62.0) fl RDW Coeff of Lily 16 H (11.0-15.0) % Plt Count 215 (150-400) K/uL MPV 9.30 (7.40-12.00) fL Neutrophils % (Manual) 70 (48.0-80.0) % Lymphocytes % (Manual) 20 (16.0-40.0) % Monocytes % (Manual) 8 (0.0-15.0) % Eosinophils % (Manual) 2 (0.0-7.0) % Nucleated RBC % 0.0 /100WBC Absolute Seg Neuts 8.5 H (1.4-5.7) Lymphocytes # (Manual) 2.4 (0.6-2.4) Monocytes # (Manual) 1.0 H (0.0-0.8) Eosinophils # (Manual) 0.2 (0.0-0.7) Nucleated RBCs # 0 K/uL Sodium 143 (136-145) mmol/L Potassium 3.9 (3.5-5.1) mmol/L Chloride 109 H (98-107) mmol/L Carbon Dioxide 25.0 (21.0-32.0) mmol/L BUN 6 L (7.0-18.0) mg/dL Creatinine 0.5 L (0.6-1.0) mg/dL Est Cr Clr Drug Dosing 152.08 mL/min Estimated GFR (MDRD) > 60.0 ml/min Glucose 104 (74-106) mg/dL Calcium 9.0 (8.5-10.1) mg/dL Result Diagrams: 06/01/19 17:57 06/01/19 17:57 Consult PN Assessment/Plan Procedures: Procedures ASSAY OF FREE THYROXINE (01/06/19) ASSAY OF PROGESTERONE (11/27/14) ASSAY THYROID STIM HORMONE (03/03/19) BILE ACIDS TOTAL (05/05/19) SHARON DNA DIR PROBE (05/11/19) CHEST X-RAY 2VW FRONTAL&LATL (12/16/15) CHORIONIC GONADOTROPIN TEST (07/25/15) COMPLETE CBC AUTOMATED (04/12/19) COMPREHEN METABOLIC PANEL (05/05/19) CULTURE OTHR SPECIMN AEROBIC (03/19/16) CULTURE SCREEN ONLY (05/11/19) EMERGENCY DEPT VISIT (04/25/16) EVAL AMNIOTIC FLUID PROTEIN (03/03/19) EXTRACRANIAL BILAT STUDY (01/20/19) BIOPHYS PROFIL W/O NST (04/19/19) NON-STRESS TEST (04/19/19) FREE ASSAY (FT-3) (08/18/16) LYONS VAG DNA DIR PROBE (05/11/19) GLUCOSE TEST (03/03/19) HEPATIC FUNCTION PANEL (05/14/16) OFFICE/OUTPATIENT VISIT EST (04/18/16) REMOTE 30 DAY ECG REV/REPORT (04/27/16) RPR UMBIL RANJITH BLOCK > 5 YR (04/28/18) SMEAR WET MOUNT SALINE/INK (03/27/16) SURGICAL PATH GROSS (03/12/15) THER/PROPH/DIAG INJ SC/IM (04/25/16) TRICHOMONAS VAGIN DIR PROBE (05/11/19) TTE W/DOPPLER COMPLETE (01/20/19) UPPER EXTREMITY STUDY (01/20/19) URINALYSIS AUTO W/SCOPE (04/18/16) URINE CULTURE/COLONY COUNT (11/02/18) URINE TEST (04/28/18) US EXAM ABDO BACK WALL HURTADO (03/28/19) (1) Epidural pneumocephalus SNOMED Code(s): 04842334, 05707440, 95377611, 86457320 Code(s): G93.89 - OTHER SPECIFIED DISORDERS OF BRAIN Current Visit: Yes (2) headache SNOMED Code(s): 431016932 Code(s): O90.89 - OTH COMPLICATIONS OF THE PUERPERIUM, NEC; R51 - HEADACHE Current Visit: Yes Problem List Initiated/Reviewed/Updated: Yes Plan: 28 year old female admitted by OBGYN. Medical team consulted 1. headache secondary to pneumocephalus from epidural during labor s/ p blood patch- Patient underwent blood patch last night without relief. Primary team started on Fioricet, magnesium, IVF, and oxygen. This morning, patient currently pain free, off oxygen, and wanting to be discharged. Will leave discharge up to primary team. No recommendations from medical team. <Eloy Dasilva - Last Filed: 06/02/19 10:50> H&P History of Present Illness - General Admit Problem/Dx: Admission Diagnosis/Problem Admission Diagnosis/Problem Headache I have seen and evaluated the patient with Dr. Quinton DO. The patient is currently pain-free. I have reviewed the patient's history and physical. I agree with the medical residents assessment and plan. Internal medicine will sign off service for now. Please feel free to reconsult if necessary. I would like to thank for participation in care of her patient. Exam - Vital Signs Vital Signs: Last Vital Signs Temp 36.8 C 06/02/19 07:10 Pulse 59 L 06/02/19 09:00 Resp 16 06/02/19 09:00 BP 119/69 06/02/19 09:00 Pulse Ox 97 06/02/19 09:00 - Patient Data Lab Results Last 24 hrs: Laboratory Results - last 24 hr 06/01/19 06/01/19 Range/Units 17:57 17:57 WBC 12.19 H (4.0-11.0) K/uL RBC 3.92 L (4.30-5.90) M/uL Hgb 11.8 L (12.0-16.0) g/dL Hct 35.6 L (36.0-46.0) % MCV 90.8 (80.0-98.0) fL MCH 30.1 (27.0-32.0) pg MCHC 33.1 (31.0-37.0) g/dL RDW Std Deviation 54.4 (28.0-62.0) fl RDW Coeff of Lily 16 H (11.0-15.0) % Plt Count 215 (150-400) K/uL MPV 9.30 (7.40-12.00) fL Neutrophils % (Manual) 70 (48.0-80.0) % Lymphocytes % (Manual) 20 (16.0-40.0) % Monocytes % (Manual) 8 (0.0-15.0) % Eosinophils % (Manual) 2 (0.0-7.0) % Nucleated RBC % 0.0 /100WBC Absolute Seg Neuts 8.5 H (1.4-5.7) Lymphocytes # (Manual) 2.4 (0.6-2.4) Monocytes # (Manual) 1.0 H (0.0-0.8) Eosinophils # (Manual) 0.2 (0.0-0.7) Nucleated RBCs # 0 K/uL Sodium 143 (136-145) mmol/L Potassium 3.9 (3.5-5.1) mmol/L Chloride 109 H (98-107) mmol/L Carbon Dioxide 25.0 (21.0-32.0) mmol/L BUN 6 L (7.0-18.0) mg/dL Creatinine 0.5 L (0.6-1.0) mg/dL Est Cr Clr Drug Dosing 152.08 mL/min Estimated GFR (MDRD) > 60.0 ml/min Glucose 104 (74-106) mg/dL Calcium 9.0 (8.5-10.1) mg/dL Result Diagrams: 06/01/19 17:57 06/01/19 17:57 Consult PN Assessment/Plan Procedures: Procedures ASSAY OF FREE THYROXINE (01/06/19) ASSAY OF PROGESTERONE (11/27/14) ASSAY THYROID STIM HORMONE (03/03/19) BILE ACIDS TOTAL (05/05/19) SHARON DNA DIR PROBE (05/11/19) CHEST X-RAY 2VW FRONTAL&LATL (12/16/15) CHORIONIC GONADOTROPIN TEST (07/25/15) COMPLETE CBC AUTOMATED (04/12/19) COMPREHEN METABOLIC PANEL (05/05/19) CULTURE OTHR SPECIMN AEROBIC (03/19/16) CULTURE SCREEN ONLY (05/11/19) EMERGENCY DEPT VISIT (04/25/16) EVAL AMNIOTIC FLUID PROTEIN (03/03/19) EXTRACRANIAL BILAT STUDY (01/20/19) BIOPHYS PROFIL W/O NST (04/19/19) NON-STRESS TEST (04/19/19) FREE ASSAY (FT-3) (08/18/16) LYONS VAG DNA DIR PROBE (05/11/19) GLUCOSE TEST (03/03/19) HEPATIC FUNCTION PANEL (05/14/16) OFFICE/OUTPATIENT VISIT EST (04/18/16) REMOTE 30 DAY ECG REV/REPORT (04/27/16) RPR UMBIL RANJITH BLOCK > 5 YR (04/28/18) SMEAR WET MOUNT SALINE/INK (03/27/16) SURGICAL PATH GROSS (03/12/15) THER/PROPH/DIAG INJ SC/IM (04/25/16) TRICHOMONAS VAGIN DIR PROBE (05/11/19) TTE W/DOPPLER COMPLETE (01/20/19) UPPER EXTREMITY STUDY (01/20/19) URINALYSIS AUTO W/SCOPE (04/18/16) URINE CULTURE/COLONY COUNT (11/02/18) URINE TEST (04/28/18) US EXAM ABDO BACK WALL HURTADO (03/28/19)
--- NOTE | 2019-06-02 07:58 | PCM.SN ---
- Free Text/Narrative Note: Patient CT scan reviewed showed Pnuemocephalus. She recieved fiorciet and Motrin at 3m. She feel much better. she has gone to the bathroom on her own. She was placed on 10L of oxygen VSS- wnl A/P 28 yo P4 PPD4 with headache secondary to Pneumocephalus PDPH Plan Continue O2 IVF Pain control as needed Neurology consult
--- NOTE | 2019-06-02 09:15 | PCM.SN ---
- Free Text/Narrative Note: Patient was seen at 0500 this AM and is able to sit up. At this time she states the pain is much better than earlier in the night. She expresses desire to be discharge this AM. I explained to the patient that her headache likely is multi-factorial as she probably had a spinal headache, CT confirmed pneumocephalus (Pt was placed on simple mask 10LPM to help with resolution), and possibly further complicated by her migraines. The patient acknowledged stress may also be a factor (Immediate post-). After two doses of Fioricet the patients headache has greatly improved, no more lingering photophobia or auditory disturbances at this time. After speaking with Dr Zuleta this morning; Dr Ross was notified by Dr Loera for consultation.
--- NOTE | 2019-06-02 12:42 | PCM.CONS ---
H&P History of Present Illness - General Date of Service: 06/02/19 Admit Problem/Dx: Admission Diagnosis/Problem headache - History of Present Illness Initial Comments - Free Text/Narative: She presented to ED on Jun 01 with worsening PATEL since delivery. Headache started during epidural on May 29. Initially, during epidural, she developed tachycardia, nausea palpitations. Within 30 seconds she developed a moderate bilateral parietal headache. During labor she had more severe headache between contractions. She went home on the . She continued to have headaches that were bilateral, posterior and extended down neck and upper back. Pain was gripping and associated with nausea, light and sound sensitivity. If sat down or lie down and rested, headache would resolve. As soon as she stood up, pain would recur. The night before last, she was doing well, but yesterday morning, it became more intense. The moment she stood up, headache became severe. She was admitted yesterday, and she underwent blood patch. She has received Fiorcet, Reglan, IVF, Magnesium. Today, her headache is significantly improved. She had shade open allowing the bright sun and was getting up to walk around without headache. She has not had change in mental status during this time. CT head / CTA head yesterday showed moderate pneumocephalus with scattered gas bubbles in subarachnoid space. She has a history of migraines since childhood. She has not had full migraine in the last 2 years. She has 9-10 headaches / month that are head band like or posterior head and resolve within 20-30 minutes with ibuprofen and a hot shower. headaceh Pain Score (Numeric/FACES): 10 - Related Data Allergies/Adverse Reactions: Allergies Allergy/AdvReac Type Severity Reaction Status Date / Time No Known Allergies Allergy Verified 06/01/19 17:10 Home Medications: Home Meds Thyroid,Pork [[place] Thyroid] 90 mg PO 05/28/19 [History] Past Medical History HEENT History: Reports: None Cardiovascular History: Reports: None Respiratory History: Reports: Asthma Other Respiratory History: has not used inhaler for 2 years Gastrointestinal History: Reports: GERD Genitourinary History: Reports: UTI, Recurrent Other Genitourinary History: last UTI was 1 month ago [employer] History: Reports: Other OB/BYN History: Pt is 34 weeks Musculoskeletal History: Reports: Neck Pain, Chronic Other Musculoskeletal History: hx of KAMILLA's Neurological History: Reports: Migraines Psychiatric History: Reports: Anxiety Endocrine/Metabolic History: Reports: Hypothyroidism Hematologic History: Reports: None Immunologic History: Reports: None Oncologic (Cancer) History: Reports: None Dermatologic History: Reports: Eczema - Infectious Disease History Infectious Disease History: Reports: Chicken Pox, Influenza - Past Surgical History Head Surgeries/Procedures: Reports: None HEENT Surgical History: Reports: Other (See Below) Other HEENT Surgeries/Procedures: wisdom teeth extraction and root canals Cardiovascular Surgical History: Reports: None Respiratory Surgical History: Reports: None GI Surgical History: Reports: Appendectomy Female Surgical History: Reports: D&C Other Female Surgeries/Procedures: retained placenta Endocrine Surgical History: Reports: None Neurological Surgical History: Reports: None Musculoskeletal Surgical History: Reports: None Dermatological Surgical History: Reports: None - History Comment History Comment: etoh "1x a week". When she is NOT . Social & Family History - Family History Family Medical History: Noncontributory HEENT: Reports: Hearing Impairment Cardiac: Reports: Cardiomyopathy OBGYN: Reports: Fibroids, Endocrine/Metabolic: Reports: Hypothyroidism Hematologic: Reports: Anemia - Tobacco Use Smoking Status *Q: Former Smoker Second Hand Smoke Exposure: No - Caffeine Use Caffeine Use: Reports: Coffee, Soda - Recreational Drug Use Recreational Drug Use: No H&P Review of Systems - Review of Systems: Review Of Systems: ROS reveals no pertinent complaints other than HPI. Exam - Exam Exam: See Below - Vital Signs Vital Signs: Last Vital Signs Temp 36.8 C 06/02/19 07:10 Pulse 59 L 06/02/19 09:00 Resp 16 06/02/19 09:00 BP 119/69 06/02/19 09:00 Pulse Ox 97 06/02/19 09:00 Weight: 81.647 kg - Exam Physical Exam Comments:: Constitutional: No acute distress Psychiatric: Mood/Affect: normal/appropriate Neurological: Mental Status: General: Normal activity, good hygiene, appropriate appearance. Level of consciousness: Awake, alert. Orientation: Oriented to person, place, time and situation. Concentration/Attention Span: Normal. Comprehension/Praxis: Able to perform a three step command. Fund of Knowledge/memory: Adequate recent and remote recall. Language: Fluent and articulate without evidence of aphasia or dysarthria. Thought Content: Normal. Insight/Judgement: Normal. Cranial Nerves: Pupils equally round and reactive to light. Visual jimenez full to confrontation. Gaze conjugate, EOMI. Sensation intact and symmetric to light touch. Facial strength is full and symmetric. Palate elevates symmetrically. Normal shrug bilaterally. Tongue protrudes midline Motor: Normal tone in all groups. No drift. Power 5/5 throughout Sensation: Sensation is intact to temp Deep tendon reflexes: Normoactive throughout. Plantar responses are flexor bilaterally. Coordination: Finger to nose, heel to iqbal and rapid alternating movements are intact. Eyes: non icteric, Mouth: moist mucus membranes Cardiovascular: RRR Respiratory: clear lungs Musculoskeletal: discomfort - Patient Data Lab Results Last 24 hrs: Laboratory Results - last 24 hr 06/01/19 06/01/19 Range/Units 17:57 17:57 WBC 12.19 H (4.0-11.0) K/uL RBC 3.92 L (4.30-5.90) M/uL Hgb 11.8 L (12.0-16.0) g/dL Hct 35.6 L (36.0-46.0) % MCV 90.8 (80.0-98.0) fL MCH 30.1 (27.0-32.0) pg MCHC 33.1 (31.0-37.0) g/dL RDW Std Deviation 54.4 (28.0-62.0) fl RDW Coeff of Lily 16 H (11.0-15.0) % Plt Count 215 (150-400) K/uL MPV 9.30 (7.40-12.00) fL Neutrophils % (Manual) 70 (48.0-80.0) % Lymphocytes % (Manual) 20 (16.0-40.0) % Monocytes % (Manual) 8 (0.0-15.0) % Eosinophils % (Manual) 2 (0.0-7.0) % Nucleated RBC % 0.0 /100WBC Absolute Seg Neuts 8.5 H (1.4-5.7) Lymphocytes # (Manual) 2.4 (0.6-2.4) Monocytes # (Manual) 1.0 H (0.0-0.8) Eosinophils # (Manual) 0.2 (0.0-0.7) Nucleated RBCs # 0 K/uL Sodium 143 (136-145) mmol/L Potassium 3.9 (3.5-5.1) mmol/L Chloride 109 H (98-107) mmol/L Carbon Dioxide 25.0 (21.0-32.0) mmol/L BUN 6 L (7.0-18.0) mg/dL Creatinine 0.5 L (0.6-1.0) mg/dL Est Cr Clr Drug Dosing 152.08 mL/min Estimated GFR (MDRD) > 60.0 ml/min Glucose 104 (74-106) mg/dL Calcium 9.0 (8.5-10.1) mg/dL Result Diagrams: 06/01/19 17:57 06/01/19 17:57 Consult PN Assessment/Plan Procedures: Procedures ASSAY OF FREE THYROXINE (01/06/19) ASSAY OF PROGESTERONE (11/27/14) ASSAY THYROID STIM HORMONE (03/03/19) BILE ACIDS TOTAL (05/05/19) SHARON DNA DIR PROBE (05/11/19) CHEST X-RAY 2VW FRONTAL&LATL (12/16/15) CHORIONIC GONADOTROPIN TEST (07/25/15) COMPLETE CBC AUTOMATED (04/12/19) COMPREHEN METABOLIC PANEL (05/05/19) CULTURE OTHR SPECIMN AEROBIC (03/19/16) CULTURE SCREEN ONLY (05/11/19) EMERGENCY DEPT VISIT (04/25/16) EVAL AMNIOTIC FLUID PROTEIN (03/03/19) EXTRACRANIAL BILAT STUDY (01/20/19) BIOPHYS PROFIL W/O NST (04/19/19) NON-STRESS TEST (04/19/19) FREE ASSAY (FT-3) (08/18/16) YLONS VAG DNA DIR PROBE (05/11/19) GLUCOSE TEST (03/03/19) HEPATIC FUNCTION PANEL (05/14/16) OFFICE/OUTPATIENT VISIT EST (04/18/16) REMOTE 30 DAY ECG REV/REPORT (04/27/16) RPR UMBIL RANJITH BLOCK > 5 YR (04/28/18) SMEAR WET MOUNT SALINE/INK (03/27/16) SURGICAL PATH GROSS (03/12/15) THER/PROPH/DIAG INJ SC/IM (04/25/16) TRICHOMONAS VAGIN DIR PROBE (05/11/19) TTE W/DOPPLER COMPLETE (01/20/19) UPPER EXTREMITY STUDY (01/20/19) URINALYSIS AUTO W/SCOPE (04/18/16) URINE CULTURE/COLONY COUNT (11/02/18) URINE TEST (04/28/18) US EXAM ABDO BACK WALL HURTADO (03/28/19) (1) Epidural pneumocephalus SNOMED Code(s): 71939631, 00660522, 35489225, 16024029 Code(s): G93.89 - OTHER SPECIFIED DISORDERS OF BRAIN Current Visit: Yes (2) headache SNOMED Code(s): 519454820 Code(s): O90.89 - OTH COMPLICATIONS OF THE PUERPERIUM, NEC; R51 - HEADACHE Current Visit: Yes Assessment:: Headache: Features of headache indicative of intracranial hypotension with significant improvement the day following blood patch, but she also has pneumocephalus. Pneumocephalus: Neuro examination is normal with no symptoms other than headache. Conservative treatment with antiemetics, analgesics, sitting at 45 deg angle prn recommended. Discussed with patient and her . Rec's -discharge with ibuprofen prn, Reglan prn, fluid intake. Discussed with Dr. Zuleta who does not recommend Fiorcet because she is breast feeding. -f/u neurology prn Problem List Initiated/Reviewed/Updated: Yes
[2019-06-02 15:31] VITALS: BP 120/69
== END 2019-06-02 15:07 | disposition home or self-care (01) ==
LOC: MW.ED 17:04 → MW.OB 21:28
PROVIDERS: ADMIT Obstetrics & Gynecology; ATTEND Obstetrics & Gynecology
DX: O99.355 Diseases of the nervous system complicating the puerperium (principal); G93.89 Other specified disorders of brain; G43.909 Migraine, unspecified, not intractable, without status migrainosus; J45.909 Unspecified asthma, uncomplicated; E03.9 Hypothyroidism, unspecified; F32.9 Major depressive disorder, single episode, unspecified
CPT/HCPCS: 36415; 70496; 80048; 85027; 96361; 96374; 96376; 99284; A9270; J2270; J2765; J3010; J7040; J7120; Q9967; 96375; G0378